=== PATIENT | male | born 1975 | race Caucasian/White ===

== ENCOUNTER 2018-12-05 15:53 | Emergency (ER) | payer MEDICAID, OTHER ==
--- NOTE | 2018-12-05 16:04 | EDM.PDOC ---
ED HPI GENERAL MEDICAL PROBLEM - General Chief Complaint: Abdominal Pain Stated Complaint: KIDNEY STONES Time Seen by Provider: 12/05/18 16:00 Source of Information: Reports: Patient History Limitations: Reports: No Limitations - History of Present Illness INITIAL COMMENTS - FREE TEXT/NARRATIVE: Patient reports to ER today with CC of left sided flank pain and LLQ abdominal pain that he describes as "sharp and constant". Patient states that "it feels like (he) has been kicked in the back". Patient denies any trauma to this area. Patient states that this started yesterday at 0800 and has persisted since, worsening in severity, rates 7/10 on adult verbal scale. Patient reports taking a Hydrocodone at 1500 today prior to coming to ER. Patient has had x2 episodes of emesis since that pain began. Patient reports having blood in urine this morning, as well as passing what looked like a "black pebble". Patient does have PM of kidney stones a couple of years ago that he was able to pass spontaneously. Onset: Sudden, Other Onset Date: 12/04/18 Onset Time: 08:00 Duration: Getting Worse Location: Reports: Other (LLQ abd, Left flank) Quality: Reports: Sharp, Stabbing Severity: Severe Improves with: Reports: None Worsens with: Reports: Movement Associated Symptoms: Reports: Loss of Appetite, Nausea/Vomiting Treatments STRAIGHT EDGER: Reports: Other Medication(s) (Hydrocodone) Left Flank Pain Score (Numeric/FACES): 8 - Related Data Allergies Allergy/AdvReac Type Severity Reaction Status Date / Time Penicillins Allergy Unknown Cannot Verified 07/09/13 18:35 Remember Home Meds: Home Meds PARoxetine [Paxil] 20 mg PO DAILY 12/05/18 [History] Past Medical History - Past Health History Medical/Surgical History: Denies Medical/Surgical History Genitourinary History: Reports: Renal Calculus ("couple years ago") ED ROS GENERAL - Review of Systems Review Of Systems: ROS reveals no pertinent complaints other than HPI. ED EXAM, RENAL/ - Physical Exam Exam: See Below Exam Limited By: No Limitations General Appearance: Alert, WD/WN, No Apparent Distress Cardiovascular: Normal Peripheral Pulses, Regular Rate, Rhythm, No Edema, No Gallop, No JVD, No Murmur, No Rub GI/Abdominal: Normal Bowel Sounds, Soft, No Distention, No Mass, Tender (LLQ tenderness) Neurological: Alert, Oriented, Normal Cognition, No Motor/Sensory Deficits Skin Exam: Warm, Dry, Intact, Normal Color, No Rash Course - Vital Signs Last Recorded V/S: Last Vital Signs Temp 36.6 C 12/05/18 16:03 Pulse 102 H 12/05/18 16:03 Resp 22 H 12/05/18 16:03 BP 141/84 H 12/05/18 16:03 Pulse Ox 99 12/05/18 16:03 - Orders/Labs/Meds Orders: Active Orders 24 hr Category Date Time Status BASIC METABOLIC PANEL,BMP [CHEM] Stat Lab 12/05/18 16:24 Received Labs: Laboratory Tests 12/05/18 12/05/18 Range/Units 15:50 16:24 WBC 11.7 H (5.0-10.0) 10^3/uL RBC 5.45 (4.6-6.2) 10^6/uL Hgb 16.0 (14.0-18.0) g/dL Hct 46.1 (40.0-54.0) % MCV 84.6 (80-100) fL MCH 29.4 (27.0-34.0) pg MCHC 34.7 (33.0-35.0) g/dL Plt Count 233 D (150-450) 10^3/uL Neut % (Auto) 80.3 H (42.2-75.2) % Lymph % (Auto) 9.6 L (20.5-50.1) % [place] % (Auto) 9.5 H (2-8) % Eos % (Auto) 0.3 L (1.0-3.0) % Baso % (Auto) 0.3 (0.0-1.0) % Urine Color Yellow (YELLOW) Urine Appearance Slightly cloudy (CLEAR) Urine pH 7.0 (5.0-9.0) Ur Specific [place] 1.020 (1.005-1.030) Urine Protein Negative (NEGATIVE) Urine Glucose (UA) 100 H (NEGATIVE) Urine Ketones Negative (NEGATIVE) Urine Occult Blood Moderate H (NEGATIVE) Urine Nitrite Negative (NEGATIVE) Urine Bilirubin Negative (NEGATIVE) Urine Urobilinogen 0.2 (0.2-1.0) mg/dL Ur Leukocyte Esterase Negative (NEGATIVE) Urine RBC 20-30 H /HPF Urine WBC 0-5 (0-5/HPF) /HPF Ur Epithelial Cells Not seen (NOT SEEN) /HPF Urine Bacteria Rare (0-FEW/HPF) /HPF Urine Mucus Few H (NOT SEEN) /LPF Meds: Medications Discontinued Medications Generic Name Dose Route Start Last Admin Trade Name Freq PRN Reason Stop Dose Admin Ketorolac Tromethamine 30 mg 12/05/18 16:06 12/05/18 16:28 Toradol IVPUSH 12/05/18 16:07 30 mg ONETIME ONE Administration Ondansetron HCl 4 mg 12/05/18 16:07 12/05/18 16:28 Zofran IV 12/05/18 16:08 4 mg ONETIME ONE Administration - Radiology Interpretation Free Text/Narrative:: Nephrolithiasis x2 right kidney.Proximal left ureteral calcification (2x5 mm) with mild obstruction per rad report. Departure - Departure Time of Disposition: 16:39 Disposition: Home, Self-Care 01 Condition: Good Clinical Impression: Ureteral obstruction, left, Right nephrolithiasis, Left ureteral stone - Discharge Information *PRESCRIPTION DRUG MONITORING PROGRAM REVIEWED*: No *COPY OF PRESCRIPTION DRUG MONITORING REPORT IN PATIENT MAXINE: No Instructions: Kidney Stones, [id number] Forms: ED Department Discharge Additional Instructions: Rx: Flomax 0.4 mg Rx: Zofran 4 mg Rx: Percocet 5/325 mg *Will cause drowsiness, do not drive while under the influence of this medication. Follow up with primary care provider to ensure resolution of kidney stones and obtain referral to urology if needed. Push fluids, stay hydrated.
[2018-12-05] MEDS ORDERED: Ketorolac 30 MG/ML SDV IVPUSH ONE (16:06)
[2018-12-05] MEDS ORDERED: Ondansetron 4 MG/2 ML SDV IV ONE (16:07)
--- NOTE | 2018-12-05 16:32 | CT ---
Clinical history: 43-year-old male left flank pain and history "kidney stones". Rule out ureteral calculus or other abnormality. TECHNIQUE: Acquisition of data emergency unenhanced CT scan of the abdomen and pelvis (kidneys/ureters/bladder) obtained with the patient lying supine on the Siemens multi slice scanner [place], [place]. All data archived in the PACS system for storage, reformatting and study. Interpretation: Abnormal. 1. *Oval 2.6 x 5.0 mm calculus lodged in the proximal left ureter with associated mild ipsilateral ureterectasis and pyelocaliectasis proximally left kidney. Two (2) similar sized large calcifications mid and lower pole calyces contralateral right kidney. 2. Pyelosinus backflow around the larger edematous appearing left kidney. No cortical mass lesion. Empty urinary bladder. 3. Suggest possibility of noncalcified intraluminal stones or gallbladder RUQ. Suggest elective follow-up sonogram. 4. Liver, stomach, spleen, pancreas and adrenal glands unremarkable. Normal caliber aortoiliac vessels. 5. No abdominal or pelvic mass lesion. No mesenteric or retroperitoneal lymphadenopathy, inflammatory "dirty" peritoneal fat, signs of mechanical bowel obstruction, ascites or free intraperitoneal air. CONCLUSION: Nephrolithiasis (x2) right kidney. Proximal left ureteral calcification (2 x 5 mm) with mild obstruction.
[2018-12-05 16:52] LABS: ANION GAP 14.7
== END 2018-12-05 16:56 | disposition home or self-care (01) ==
LOC: DL.ED 15:53
DX: N20.2 Calculus of kidney with calculus of ureter (principal); Z88.0 Allergy status to penicillin
CPT/HCPCS: 36415; 74176; 80048; 81001; 85025; 96374; 96375; 99284; J1885; J2405

== ENCOUNTER 2019-07-29 18:29 | Emergency (ER) | payer BC, MEDICAID ==
[2019-07-29] MEDS ORDERED: Acetaminophen/HYDROcodone 325-10 MG Tab PO ONE (18:30)
[2019-07-29] MEDS ORDERED: Iopamidol 612 MG/ML 100 ML Bottle IVPUSH ONE (18:31)
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
[2019-07-29] MEDS ORDERED: Acetaminophen 325 MG Tab PO ONE (18:51)
[2019-07-29 19:00] LABS: ANION GAP 12.7; CHLORIDE,CL 106 mmol/L (101-111); SODIUM,NA 141 mmol/L (135-145)
[2019-07-29] MEDS ORDERED: Acetaminophen/HYDROcodone 325-10 MG Tab ONE (19:48)
== END 2019-07-29 19:55 | disposition home or self-care (01) ==
LOC: DL.ED 18:29
DX: S06.0X9A Concussion with loss of consciousness of unspecified duration, initial encounter (principal); S00.03XA Contusion of scalp, initial encounter; Z88.0 Allergy status to penicillin; Z79.899 Other long term (current) drug therapy; V89.2XXA Person injured in unspecified motor-vehicle accident, traffic, initial encounter
CPT/HCPCS: 36415; 70450; 71260; 72125; 74177; 80053; 80320; 81001; 85025; 85610; 85730; 99284; A9270; Q9967; G0480